=== PATIENT | male | born 1995 | race Asian ===

== ENCOUNTER 2024-02-12 01:03 | Emergency (ER) | payer MEDICAID, OTHER ==
[~2024-02-12] VITALS: Ht 180.3 cm; Wt 75.0 kg
[2024-02-12 01:11] VITALS: O2SAT 100
[2024-02-12] MEDS ORDERED: IBUP-2029 MT (01:45)
[2024-02-12 02:12] VITALS: TEMP 97.6
[2024-02-12 02:13] VITALS: BP 128/79; PULSE 61; RESP 18
[2024-02-12] MEDS: IBUPROFEN 400MG TABLET PO ONE (02:13)
== END 2024-02-12 02:17 | disposition home or self-care (01) ==
LOC: ER 01:03
DX: S62.306A Unspecified fracture of fifth metacarpal bone, right hand, initial encounter for closed fracture (principal); Y93.B9 Activity, other involving muscle strengthening exercises; Y92.89 Other specified places as the place of occurrence of the external cause; Y99.8 Other external cause status
CPT/HCPCS: 29125; 73130; 99283

== ENCOUNTER 2024-02-23 18:35 | Emergency (ER) | payer OTHER ==
[~2024-02-23] VITALS: Ht 180.3 cm; Wt 75.0 kg
[~2024-02-23 18:35] MED LIST: IBUP-2029 MT
[2024-02-23 18:43] VITALS: BP 105/75; PULSE 101; TEMP 98.7; O2SAT 100
[2024-02-23] MEDS: KETOROLAC 15MG/ML VIAL IM ONE (20:00)
[2024-02-23] MEDS ORDERED: NAPR-1176 MT (22:03)
== END 2024-02-23 22:22 | disposition home or self-care (01) ==
LOC: ER 18:35
DX: S62.304A Unspecified fracture of fourth metacarpal bone, right hand, initial encounter for closed fracture (principal); S62.306A Unspecified fracture of fifth metacarpal bone, right hand, initial encounter for closed fracture; X58.XXXA Exposure to other specified factors, initial encounter; Y93.89 Activity, other specified; Y92.89 Other specified places as the place of occurrence of the external cause; Y99.8 Other external cause status
CPT/HCPCS: 99283; 73130; 29125; 96372; J1885